=== PATIENT | male | born 1970 | race Caucasian/White ===

== ENCOUNTER 2017-06-08 11:31 | Inpatient (IN) | payer OTHER ==
[~2017-06-08] VITALS: Ht 182.9 cm; Wt 73.0 kg
[2017-06-08 12:14] LABS: BASOPHIL (%) 0.4 % (0-1); EOSINOPHIL (%) 0.1 % (0-5); HEMATOCRIT 39.6 % (38.0-50.0); HEMOGLOBIN 14.3 G/DL (12.5-16.6); IMMATURE GRANULOCYTE (%) 0.2 % (0.0-0.7); LYMPHOCYTE (%) 9.4 % (15-42); MCH 30.2 PG (29.0-34.0); MCHC 36.1 G/DL (30.0-36.0); MCV 83.7 FL (86-99); MONOCYTE (%) 6.2 % (3-12); MONOCYTE COUNT 0.7 K/uL (0-0.8); NEUTROPHIL (%) 83.7 % (45-76); PLATELET COUNT 262 K/uL (156-360); RBC DIS.WIDTH-CV 12.1 % (11.8-14.6); RBC DIS.WIDTH-SD 37.1 % (39-53); RED BLOOD COUNT 4.73 M/uL (4.00-5.50); WHITE BLOOD COUNT 10.8 K/uL (4.1-10.2)
[2017-06-08 12:22] LABS: CHLORIDE 106 mEq/L (99-109); POTASSIUM 3.8 mEq/L (3.7-5.4); SODIUM 137 mEq/L (136-147)
[2017-06-08 12:24] LABS: GLUCOSE 129 mg/dL (70-99)
[2017-06-08 12:27] LABS: SERUM ETHYL ALCOHOL < 10 mg/dL
[2017-06-08 12:28] LABS: CREATININE 0.9 mg/dL (0.6-1.3); GFR ESTIMATE (CALCULATED) > 59 mL/min/ (58.99-99999)
[2017-06-08 12:29] LABS: UREA NITROGEN (BUN) 10 mg/dL (9-23)
[2017-06-08 16:45] LABS: APPEARANCE CLEAR ((CLEAR)); BILIRUBIN NEGATIVE; BLOOD SMALL; COLOR YELLOW ((YELLOW)); GLUCOSE (STRIP) NEGATIVE; KETONES 5; LEUKOCYTES NEGATIVE; NITRITE NEGATIVE; PROTEIN (STRIP) NEGATIVE; SPECIFIC GRAVITY 1.005 (1.000-1.030); UROBILINOGEN 0.2 MG/DL (0.2-1.0)
[2017-06-08 16:49] LABS: BACTERIA NONE SEEN /HPF; EPITHELIAL CELLS RARE /HPF; HYALINE CASTS 0-5 /LPF; MUCUS NONE SEEN /LPF; UCUL ADDED? NO; WHITE BLOOD CELLS 0-5 /HPF (0-5)
[2017-06-08 16:51] LABS: AMPHETAMINE NEGATIVE (500 ng/mL); BARBITURATES NEGATIVE (200 ng/mL); BENZODIAZEPINES PRESUMPTIVE POSITIVE (150 ng/mL); BUPRENORPHINE NEGATIVE (10 ng/mL); COCAINE NEGATIVE (150 ng/mL); METHADONE NEGATIVE (200 ng/mL); METHAMPHETAMINE NEGATIVE (500 ng/mL); OPIATES (MORPHINE) PRESUMPTIVE POSITIVE (100 ng/mL); OXYCODONE NEGATIVE (100 ng/mL); PHENCYCLIDINE NEGATIVE (25 ng/mL); PROPOXYPHENE NEGATIVE (300 ng/mL); THC CANNABINOIDS NEGATIVE (50 ng/mL); TRICYCLIC ANTIDEPRESSANTS NEGATIVE (300 ng/mL)
[2017-06-08 17:30] LABS: BENZODIAZEPINES, URINE SCREEN POSITIVE (200 ng/mL)
[2017-06-08] MEDS ORDERED: ATIVAN2 MG PO (18:18)
[2017-06-08] MEDS ORDERED: MORPHINE SULFAT15 M1 PO (18:55)
[2017-06-08] MEDS ORDERED: CARTIA XT180 MG PO (18:55)
[2017-06-08] MEDS ORDERED: PRAZOSIN HCL2 MG PO (18:55)
[2017-06-08] MEDS ORDERED: TIZANIDINE HCL4 MG PO (18:55)
[2017-06-08] MEDS ORDERED: FLUOXETINE HCL40 MG PO (18:56)
[2017-06-08] MEDS ORDERED: ALPRAZOLAM1 MG PO (18:56)
[2017-06-08] MEDS ORDERED: FLUOXETINE HCL20 MG PO (18:56)
[2017-06-08] MEDS ORDERED: QUETIAPINE FUM100 MG PO (18:57)
[2017-06-08] MEDS ORDERED: OXYCODONE HCL15 MG PO (18:57)
[2017-06-08 23:43] VITALS: BP 176/111
[2017-06-09 04:51] VITALS: BP 168/98
[2017-06-09 06:34] LABS: HEMATOCRIT 41.4 % (38.0-50.0); MCH 30.4 PG (29.0-34.0); MCHC 36.2 G/DL (30.0-36.0); PLATELET COUNT 254 K/uL (156-360); RBC DIS.WIDTH-CV 12.4 % (11.8-14.6); RBC DIS.WIDTH-SD 37.8 % (39-53); RED BLOOD COUNT 4.93 M/uL (4.00-5.50); WHITE BLOOD COUNT 12.7 K/uL (4.1-10.2)
[2017-06-09 06:54] LABS: CHLORIDE 101 MEQ/L (99-109); CREATININE 0.7 MG/DL (0.6-1.3); GFR ESTIMATE (CALCULATED) > 59 mL/min/ (58.99-99999); GLUCOSE 115 mg/dL (70-99); POTASSIUM 3.4 MEQ/L (3.7-5.4); SODIUM 136 MEQ/L (136-147); UREA NITROGEN (BUN) 10 mg/dL (9-23)
[2017-06-09 07:26] LABS: APPEARANCE SL.HAZY ((CLEAR)); BILIRUBIN NEGATIVE; BLOOD MODERATE; COLOR YELLOW ((YELLOW)); GLUCOSE (STRIP) NEGATIVE; KETONES 80; LEUKOCYTES NEGATIVE; NITRITE NEGATIVE; PROTEIN (STRIP) 30; SPECIFIC GRAVITY 1.019 (1.000-1.030); UROBILINOGEN 0.2 MG/DL (0.2-1.0)
[2017-06-09 07:34] LABS: BACTERIA RARE /HPF; EPITHELIAL CELLS RARE /HPF; MUCUS TRACE /LPF; UCUL ADDED? NO; WHITE BLOOD CELLS 0-5 /HPF (0-5)
[2017-06-09 07:36] VITALS: BP 139/91
[2017-06-09 11:40] VITALS: BP 137/82
[2017-06-09 15:37] VITALS: BP 100/61
[2017-06-09 20:01] VITALS: BP 108/77
[2017-06-09 23:32] VITALS: BP 94/65
[2017-06-10 03:38] VITALS: BP 123/71
[2017-06-10 08:00] VITALS: BP 144/86
[2017-06-10 11:30] VITALS: BP 116/72
[2017-06-10] MEDS ORDERED: OXYCODONE HCL15 MG PO (14:53)
[2017-06-10] MEDS ORDERED: QUETIAPINE FUM100 MG PO (14:53)
[2017-06-10] MEDS ORDERED: FLUOXETINE HCL40 MG PO (14:53)
[2017-06-10] MEDS ORDERED: FLUOXETINE HCL20 MG PO (14:53)
[2017-06-10] MEDS ORDERED: PRAZOSIN HCL2 MG PO (14:53)
[2017-06-10] MEDS ORDERED: TIZANIDINE HCL4 MG PO (14:53)
[2017-06-10] MEDS ORDERED: CARTIA XT180 MG PO (14:53)
[2017-06-10] MEDS ORDERED: ALPRAZOLAM1 MG PO (14:53)
[2017-06-10] MEDS ORDERED: MORPHINE SULFAT15 M1 PO (14:53)
[2017-06-10 16:00] VITALS: BP 112/72
== END 2017-06-10 17:36 | disposition home or self-care (01) | DRG 948 ==
LOC: EME 11:31 → EDOF 21:28 → 5SOUTH 21:28 → ENRESERV 21:32 → 5SOUTH 23:12
PROVIDERS: Emergency Medicine; Hospitalist
DX: R41.82 Altered mental status, unspecified (principal); R44.3 Hallucinations, unspecified; R25.1 Tremor, unspecified; T42.4X6A Underdosing of benzodiazepines, initial encounter; T40.2X6A Underdosing of other opioids, initial encounter; Z91.138 Patient's unintentional underdosing of medication regimen for other reason; E87.6 Hypokalemia; F33.1 Major depressive disorder, recurrent, moderate; F40.01 Agoraphobia with panic disorder; F43.10 Post-traumatic stress disorder, unspecified; G89.29 Other chronic pain; M54.9 Dorsalgia, unspecified; I10 Essential (primary) hypertension; Z66 Do not resuscitate; Z79.891 Long term (current) use of opiate analgesic
CPT/HCPCS: 70450; 80048; 81003; 84999; 85025; 85027; 90839; 93970; 95819; 99281; 99285; G0480; J1650; J2060; J2405; J7030; J7040